=== PATIENT | female | born 1975 | race Caucasian/White ===

== ENCOUNTER → 2017-04-07 | Day surgery (SDC) | payer OTHER ==
[2017-04-07] VITALS (8 sets, daily range): BP systolic 109–133; BP diastolic 70–92; PULSE 56–71; RESP 11–26; O2SAT 95–99
[~2017-04-07] VITALS: Ht 162.6 cm; Wt 82.6 kg
[~2017-04-07] MED LIST: Bupivacaine-MPF 0.5% 30 mL Inj INFILTRATE ONE; CeFAZolin 2 Gm/50 mL D5W Duplex Bag IV ONE; CeFAZolin Inj 2 GM in IV Premix 1 EACH IV ONE; Dexamethasone 4 mg/mL Inj IVPUSH PRN; EPHEDrine Sulfate 50 mg/mL Inj IVPUSH PRN; EPHEDrine/NS 5 mg/mL 5 mL Syringe ONE; ESCI20TA PO; Glycopyrrolate 0.2 MG/ML 1mL Inj ONE; HYDROmorphone 1 mg/mL Inj IVPUSH PRN; LAMO100T PO; Lactated Ringer's 1,000 ML IV ONE; Lactated Ringer's 1,000 ML IV SCH; Lactated Ringer's 500 ML IV PRN; MetoCLOpramide 5 mg/mL 2 mL Inj IVPUSH PRN; Neostigmine 1 mg/mL 10 mL Inj ONE; OXYC1TAB24 PO; Ondansetron 2 mg/mL 2 mL Inj IVPUSH PRN; Ondansetron 2 mg/mL 2 mL Inj ONE; Phenylephrine 10,000 mCg/mL Inj IVPUSH PRN; Propofol 10,000 mCg/mL 20 mL Inj ONE; Rocuronium 10 mg/mL 5 mL Inj ONE; fentaNYL-PF 50 mCg/mL 2 mL Inj ONE
--- NOTE | 2017-04-07 09:53 | PCM.HPANE ---
Patient Data Surgeon Admitting Provider: Attending Provider:Evelyn Lynne MD Primary Care Physician:Junior James MD Other Provider:[facility] Reason for Visit Malpositioned Iud, Hx Of Ovarian Cyst Ht/WT & BMI Height (Feet): 5 Height (Inches): 4.00 Weight (Kilograms): 82.640 Body Mass Index 31.00 Allergies Coded Allergies: Sulfa (Sulfonamide Antibiotics) (Verified Allergy, Severe, Hives, 04/29/15 ) per pt Past Anesthesia History Anesthesia History: Denies:: Abnormal Airway, Anesthesia Reactions, Difficult Intubation, Fam Anesthesia Reaction, Fam Malignant Hypertherm, Malignant Hyperthermia Diabetes History Hx Diabetes?: No MRSA MRSA: No Medications Hypertension Medication: No Home Meds Incl Beta Ashlie: No Reported Medications Escitalopram Oxalate (Lexapro)20 Mg [id number] Mg PO DAILY 30 Days Ref 0 04/06/17 Lamotrigine (Lamictal)100 Mg [id number] Mg PO DAILY #30 TABLET Ref 0 04/06/17 oxyCODONE-Acetaminophen 5-325 mg 1 Each Tablet1 Tab PO Q12H PRN For Pain Ref 0 04/06/17 History History of ENT Problems?: No HEENT History: Denies:: Abnormal Airway Cataracts Difficult Intubation Dysphagia Glaucoma Hearing Problem Sinus Problem TMJ Denture Type: None Teeth Condition: Within Normal Limits Hx of Heart Problems?: No Cardiovascular History: Denies:: AICD Abdominal Aortic Aneurism Atrial Fibrillation Cardiac Surgery Chest Pain Congestive Heart Failure Coronary Artery Disease Edema Heart Murmur Hypertension Irregular Heartbeat Pacemaker Peripheral Vascular Rheumatic Fever Thrombophlebitis Valvular Heart Disease Hx of Respiratory Problem?: No Respiratory History: Denies:: Asthma COPD Cough Hemoptysis Oxygen Administration Pneumonia Tuberculosis Use of C-PAP Machine Hx Neurologic Problems?: No Neurological History: Denies:: CVA Dementia Headaches Multiple Sclerosis Parkinson's Disease Seizures Hx of GI Problems?: Yes Hx of Problems?: Yes Genitourinary History: Positive for:: Kidney Stones (remote hx, surgery with stent in her 20s) Denies:: Urinary Tract Infection Female Hx: Denies:: Currently (IUD ) Problems with Breasts? Skin History: Denies:: History Skin Disorders? Pressure Ulcers Hx Musculoskeletal Problems?: Yes Musculoskeletal History: Positive for:: Back Injury (back pain related to current sx) Denies:: Fibromyalgia Joint Replacement Musculoskeletal Trauma Osteoarthritis Systemic Lupus Hx of Psycho/Social Problems?: Yes Psycho Social History: Positive for:: Hx Depression Denies:: Anxiety Hx Surgeries?: Yes (APPY, LAP ANYA, T & A, KIDNEY STONES, ) Hx Any Other Health Problems?: No Other History: Denies:: Cancer Thyroid Disease History Blood Transfusions: Positive for:: Accept Blood Products? Denies:: Blood Transfusions Hx Diabetes: No Hx Alcohol Use: NoHx Substance Use: No Smoking Status: Never Smoker Have You Smoked inLast 12 mo: No Stop/Bang S-Snoring: Do You Snore Loudly: No T-Tired: feel tired, fatigued: No O-Obsered: Observed not breath: No P-Blood Pressure: treated: No B- Body Mass Index > 35 kg/m2: No A- Age over 50: No N- Neck Large Circumference: No G- Gender Male: No DALIA Total Score: 0 DALIA Risk Assessment: Low Risk, <3 Yes Risk Assessment Category Category 1A: Patient has history of documented sleep apnea, and HAS NOT received any narcotic, sedative or anesthesia administration during this stay. Category 1B: Patient has history of documented sleep apnea, and HAS received any narcotic , sedative or anesthesia administration during this stay Category 2: Patient has SUSPECTED Obstructive Sleep Apnea, and HAS received any narcotic , sedative or anesthesia administration during this stay. Category 3: Patient has SUSPECTED Obstructive Sleep Apnea and HAS NOT received narcotic, sedative or anesthesia administration during this stay. Category 4: Outpatient in Procedural Areas with known sleep apnea or who screen positive for High Risk via the STOP/BANG questionnaire. Exam Exam Vital Signs Vital Signs Date Time Temp Pulse Resp B/P Pulse Ox O2 Delivery O2 Flow Rate FiO2 04/07/17 07:44 36.2 64 17 125/92 98 Room Air General Appearance: Alert HEENT/AIRWAY: MP 1 Lungs: Clear to Auscultation Heart: Exam Unremarkable Meds/Labs/Diagnostics Admission Meds Current Medications Lactated Ringer's (Lr) 1,000 ml @ ud STK-MED ONCE IV Last administered on 04/07t 07:43; Start 04/07/17 at 07:43; Stop 04/07/17 at 07:44; Status DC Plan Impression Patient chart reviewed, patient interviewed and anesthestic plan with risks, benefits, and alternatives discussed, and informed consent obtained. ASA Physical Status: ASA1 Normal Healthy Anesthetic Plan: GA Bene/Risks/Altern/Consents: Yes HP Complete Prior to Induction: Yes Jazmine Vargas MD Apr 07, 2017 09:53
--- NOTE | 2017-04-07 11:56 | PCM.DIGYN ---
Surgical Discharge Instruction Dates of Hospitalization Date of Hospital Admission Providers Admitting Physician: Primary Care Physician: Junior James MD Attending Physician: Evelyn Lynne MD Diagnosis at Time of Discharge Diagnosis at time of discharge dislocated IUD possible perforation of the uterus by IUD abdominal pain Post-operative diagnosis dislocated IUD Problems: Diet Discharge Diet: No restrictions Activity Discharge Activity-General: Try not to overdue, Be up and about, Balance rest and activity, Activity as pain allows, Activity as energy allows, No driving while taking narcotic Dressing and Incisional Care Hygiene: May shower, NO bathtub, hot tub or whirlpool Additional Instructions Discharge Instructions Please call office if severe abdominal pain , fouls smelling discharge, fever more than 100.4 or short of breath. Please call office to make appointment for follow up 2 weeks after procedure Follow Up Plan Follow Up Plan 2 weeks Follow-up Provider (F9): Evelyn Lynne MD Follow-up appointment: Weeks (2) Call your provider for: Fever, Chills, Shortness of breath, Vomitting, Drainage at incision, Heavy vaginal bleeding, Wound redness, Increasing pain Evelyn Lynne MD Apr 07, 2017 11:56
[2017-04-07] MEDS: fentaNYL-PF 50 mCg/mL 2 mL Inj IVPUSH PRN ×2 (11:59→12:10)
[2017-04-07] MEDS: oxyCODONE-Acetamin 5-325 mg Tablet PO PRN ×2 (12:37→13:20)
--- NOTE | 2017-04-07 12:45 | OP ---
[address] [address] OPERATIVE REPORT PATIENT: PABLO ANGULO I : 1975 MR#: [id number] ADMIT: 04/07/2017 JOB ID: [id number] DATE OF SURGERY: 04/07/2017 SURGEON: Evelyn Lynne MD. BLUING OVEN TENDER: Dr. Pradeep Gregory. The assistant corporation counsel for this procedure is very necessary for a complicated procedure and for completing the procedure. PREOPERATIVE DIAGNOSIS(ES): This is a 41-year-old, 3, para 3, with intrauterine device complication with the embedded intrauterine device and possibly perforation of the uterus, pelvic pain. POSTOPERATIVE DIAGNOSIS(ES): This is a 41-year-old, 3, para 3, with intrauterine device complication with the embedded intrauterine device and possibly perforation of the uterus, pelvic pain. INDICATIONS FOR THE PROCEDURE: This is a 41-year-old, 3, para 3, with intrauterine device complication with the embedded intrauterine device and possibly perforation of the uterus, pelvic pain. This is a 41-year-old female, 3, para 3, and IUD placed six weeks after vaginal delivery. One year ago, was noticed malposition of IUD with pelvic discomfort. Two weeks ago, she had severe right lower abdominal pain. CT and ultrasound confirmed dislocation of IUD. It is likely both arms of the IUD are protruding into the muscular tissue of the uterus and one arm possibly perforated the uterus above the serosal layer. She was examined in the office yesterday and noted the string, with gentle pulling causing significant pain and no moving of the IUD. Planned for hysteroscopy and laparoscopy for IUD removal. Ultrasound also showed she had an ovarian cyst. Also plan for possible cystectomy, oophorectomy if there is concerning ovarian cyst. Discussed with the patient about the benefits, risks, alternatives of the procedure. The patient understood, and she did not want a hysterectomy. She understood for this procedure there is risk of infection, bleeding, injury to the organs including uterus and around the uterus like bladder, ureters, major vessels, nerves and bowel. She also understood there is a possibility of laparotomy if necessary. Informed consent signed. PROCEDURE IN DETAIL: The patient was transferred to operating room. After anesthesia was noted to be adequate, she was placed in dorsal lithotomy position. She was prepared and draped in normal sterile fashion. The attention was first focused on her abdomen. The laparoscopy started first. Marcaine was inserted into her umbilical area, and Veress needle was placed inside her uterine cavity. After confirming the proper placement, CO2 gas inserted to form pneumoperitoneum. At this time, a 5 mm incision was placed on her umbilicus. A 5 mm trocar was placed with direct visualization. At this time, the patient was placed in Trendelenburg position and a sponge on a stick was used for manipulation of the uterus. By this way, the uterus was well visualized. There was about a 4-5 cm uterine fibroid on the left fundus. Both ovaries and tubes looked normal. There were no ovarian cyst noticed. Looking at the broad ligament, there was no significant abnormality noticed. There was no IUD noticed by examination. The broad ligament was not opened. At this time, the attention was transferred to hysteroscopy. Before the hysteroscope was placed, with laparoscopy when looking at her broad ligament, there was white tissue noticed on her right broad ligament but it was soft, not likely IUD. So, the string was grasped by ring forceps and I tried to pull down with no moving of this whitish tissue on broad ligament. During this pulling, the IUD was able to be removed, and the IUD was complete. Then, the hysteroscope inserted into her uterine cavity. The pressure was easily maintained with no significant fluid deficit. On the right cornual area, two significant defects could be seen like about 2-3 mm in diameter of each. No bleeding was noted. It is likely where the embedded IUD arms located. At this time, there were no other abnormal finding of her uterine cavity. All instruments removed from the patient and all instruments, needles, laps and gauzes counted correct twice. The skin incision was closed by 4-0 Monocryl subcutaneously. The patient tolerated the procedure well. EBL during procedure was 5 cc. The patient was transferred to recovery room in stable condition. MTDD
--- NOTE | 2017-04-07 13:14 | PCM.ANEP1 ---
Post Anesthesia PACU Phase 1 Assessment Vital Signs Vital Signs Date Time Temp Pulse Resp B/P Pulse Ox O2 Delivery O2 Flow Rate FiO2 04/07/17 12:20 65 14 109/77 95 Room Air 04/07/17 12:05 65 26 131/73 98 Room Air 04/07/17 11:50 56 17 126/79 95 Room Air 04/07/17 11:45 57 16 130/81 99 Simple Mask 8 04/07/17 11:40 70 14 133/85 97 Simple Mask 8 04/07/17 11:37 36.3 71 11 133/83 97 Simple Mask 8 04/07/17 07:44 36.2 64 17 125/92 98 Room Air Anesthetic Administered: GA Level of Alertness: Awake, talking FERRARI's with Equal Strength: Yes Pain: No Nausea or Vomiting: No CV Function & Hydration Stable: No Airway Device: Oxygen Delivery: Room Air Lungs: Clear to Auscultation PACU Phase 2 Assessment Complications: No Follow up Care: No Patient Instructions Provided: Yes Jazmine Vargas MD Apr 07, 2017 13:14
== END | disposition home or self-care (01) ==
LOC: SAS 07:23
PROVIDERS: ATTEND Obstetrics & Gynecology
DX: T83.32XA Displacement of intrauterine contraceptive device, initial encounter (principal); D25.9 Leiomyoma of uterus, unspecified; R10.2 Pelvic and perineal pain; F41.8 Other specified anxiety disorders; F39 Unspecified mood [affective] disorder
CPT/HCPCS: 58562; 58661; J1885; J2405; J2704; J2710; J3010; J7120